=== PATIENT | female | born 1995 | race African-American/Black ===

== ENCOUNTER → 2019-06-27 15:41 | Outpatient (CLI) | payer OTHER, SELFPAY ==
--- NOTE | 2019-06-26 08:10 | LES_PTH ---
PATIENT: KENDALL FIERRO LOC: [facility] U#:[id number] AGE/SX: 29/F ROOM: RE06/27/[address]: Dr. Wiliam Vallejo MD : [id number] BED: DIS: SPEC #: [id number] RECD: 06/27/19 15:26 STATUS: ADELA KURT #: [id number] SUDHIR: 06/26/19 08:[address]: Wiliam Vallejo DEPT: SURGICAL PATHOLOGY RECD BY: Bassam Sparrow ENTERED: 06/28/19 08:01 SP TYPE: Lesion OTHR DR: Dr. Elizabeth Dumont MD [facility] Tissues: Skin of external ear, NOS Procedures: Surgery Specimen Level III HEADER OPERATION: Excision benign lesion right ear PRE-OP DIAGNOSIS: Keloid right lobule TISSUE SUBMITTED: Benign lesion right ear MICROSCOPIC DIAGNOSIS Benign lesion right ear, excisional biopsy: Hypertrophic scar, consistent with keloid. SJ:magda 06/29/19 MICROSCOPIC DESCRIPTION Slides are reviewed. GROSS DESCRIPTION Received in fixative is one container labeled with the patient's name and designated benign lesion right ear. The specimen consists of a polypoid fragment of dark qiu skin measuring 2 x 1.3 x 1 cm. The presumed margin of excision is inked. The specimen is serially sectioned and totally submitted in one cassette. / AM:magda 06/28/19 TC:5 CPT: 65157
== END ==
PROVIDERS: Family Provider Pediatrics; PCP Pediatrics; Referring Provider Otolaryngology; Visit Provider Otolaryngology
DX: L91.0 Hypertrophic scar (principal)
CPT/HCPCS: 88304; 88305